=== PATIENT | male | born 1960 | race Hispanic/Latino ===

== ENCOUNTER 2024-03-13 13:55 | Outpatient (CLI) | payer BC ==
[~2024-03-13 13:55] MED LIST: Iopamidol 300 61% 100 ML VIAL FS ONE
== END 2024-03-13 13:56 | disposition home or self-care (01) ==
LOC: CSHCT 13:55
PROVIDERS: ATTEND Family Medicine
DX: R91.1 Solitary pulmonary nodule (principal); Z80.51 Family history of malignant neoplasm of kidney; R31.9 Hematuria, unspecified; R74.8 Abnormal levels of other serum enzymes; N28.1 Cyst of kidney, acquired; N40.1 Benign prostatic hyperplasia with lower urinary tract symptoms
CPT/HCPCS: 71250; 74178; Q9967

== ENCOUNTER 2024-12-14 08:22 | Outpatient (CLI) | payer BC | END 2024-12-14 08:23 | disposition home or self-care (01) | LOC: CSHSLEEP 08:22 | PROVIDERS: ATTEND Internal Medicine Critical Care Medicine | DX: G47.33 Obstructive sleep apnea (adult) (pediatric) (principal); R53.83 Other fatigue | CPT/HCPCS: 95800 ==